=== PATIENT | male | born 1980 | race Caucasian/White ===

== ENCOUNTER 2020-11-21 19:25 | Emergency (ER) | payer SELFPAY ==
[~2020-11-21] VITALS: Ht 185.4 cm; Wt 95.3 kg
[2020-11-21 19:39] VITALS: BP_SYST 137
[2020-11-21] MEDS ORDERED: DIPH-TET-PERTUS Vaccine 0.5 ML VIAL (ADACEL) I.M. ONE (20:15)
[2020-11-21 20:38] VITALS: BP_SYST 123
== END 2020-11-21 20:38 ==
LOC: SED 19:25
DX: S00.411A Abrasion of right ear, initial encounter (principal); Y04.0XXA Assault by unarmed brawl or fight, initial encounter; Y93.89 Activity, other specified; Y92.89 Other specified places as the place of occurrence of the external cause; Y99.8 Other external cause status
CPT/HCPCS: 90715; 99283